=== PATIENT | male | born 2005 | race Hispanic/Latino ===

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

== ENCOUNTER 2024-04-09 06:33 | Emergency (ER) | payer OTHER ==
[~2024-04-09] VITALS: Ht 172.7 cm; Wt 96.2 kg
[2024-04-09 06:49] VITALS: BP 138/79; PULSE 79; RESP 18; O2SAT 100
[2024-04-09] MEDS: KETOROLAC 15MG/ML VIAL (15MG/ML) IM ONE (07:55)
[2024-04-09] MEDS ORDERED: BACITRACIN 1 EACH PACKET TP ONE (08:03)
== END 2024-04-09 08:54 | disposition home or self-care (01) ==
LOC: EDH 06:33
DX: S99.922A Unspecified injury of left foot, initial encounter (principal); W22.8XXA Striking against or struck by other objects, initial encounter; Y93.89 Activity, other specified; Y92.89 Other specified places as the place of occurrence of the external cause; Y99.8 Other external cause status
CPT/HCPCS: 99283; 73630; 96372; J1885